=== PATIENT | female | born 1995 | race Caucasian/White ===

== ENCOUNTER 2017-02-07 19:57 | Emergency (ER) | payer MEDICAID ==
[~2017-02-07] VITALS: Ht 160 cm; Wt 75.0 kg
[~2017-02-07 19:57] MED LIST: ACET325T33 PO; FLUO40CA10 PO; ONDA4TAB35 PO
[2017-02-07 20:13] VITALS: Ht 160 cm; Wt 75.0 kg
[2017-02-07] MEDS ORDERED: ONDANSETRON (ODT) 4 MG TAB ODT STA (21:33)
[2017-02-07 21:54] LABS: URINE BLOOD (Dip) POC Negative (NEGATIVE)
[2017-02-07] MEDS ORDERED: MECLIZINE 12.5 MG TAB PO ONE (22:00)
[2017-02-07] MEDS ORDERED: ONDA4TAB14 PO (22:15)
[2017-02-07] MEDS ORDERED: MECL12.574 PO (22:15)
--- NOTE | 2017-02-07 22:18 | ERD ---
ER Documentation Chief Complaint Date/Time DATE: 02/07/17 TIME: 22:16 Chief Complaint dizziness x 4 days HPI Patient is a 21-year-old female who states she has felt dizzy for the past 4 days. She has had this before but usually her symptoms resolve after a couple days. Dizziness is worse with movement and she states that it feels like the room is spinning. She admits to nausea and she vomited one time yesterday. Last menstrual period was 2 weeks ago. Denies any trauma. Denies fever. Worse with movement of her head. ROS All systems reviewed and are negative except as per history of present illness. Medications Home Meds Active Scripts Ondansetron (Ondansetron Odt) 4 Mg Tab.rapdis, 4 MG PO Q6H Y for NAUSEA AND/OR VOMITING, #10 TAB Prov:BRII AVINA PA-C 02/07/17 Meclizine Hcl* (Antivert*) 12.5 Mg Tab, 25 MG PO Q6H Y for DIZZINESS, #20 TAB Prov:BRII AVINA PA-C 02/07/17 Acetaminophen* (Tylenol*) 325 Mg Tablet, 1 TAB PO Q6 Y for PAIN AND OR ELEVATED TEMP, #20 TAB Prov:JOSHUA CASTANEDA PA-C 06/17/15 Ondansetron Hcl* (Zofran* ODT) 4 mg -ODT Tab.disper, 4 MG PO Q6 Y for NAUSEA AND /OR VOMITING, #10 TAB Prov:JOSHUA CASTANEDA PA-C 06/17/15 Reported Medications Fluoxetine Hcl* (Prozac*) 40 Mg Capsule, 40 MG PO DAILY 07/08/12 [None] No Conflict Check 03/26/11 Allergies Allergies: Coded Allergies: No Known Drug Allergies (Verified Allergy, Mild, 03/26/11) PMhx/Soc History of Surgery: No Anesthesia Reaction: No Hx Neurological Disorder: No Hx Respiratory Disorders: No Hx Cardiac Disorders: No Hx Psychiatric Problems: Yes (DEPRESSION.) Hx Miscellaneous Medical Probl: Yes (insomnia) Hx Alcohol Use: Yes (social) Hx Substance Use: No Hx Tobacco Use: Yes Smoking Status: Current some day smoker FmHx Family History: No diabetes Physical Exam Vitals Vital Signs Date Time Temp Pulse Resp B/P Pulse Ox O2 Delivery O2 Flow Rate FiO2 02/07/17 20:13 98.4 86 17 127/62 99 Physical Exam General: well developed, well nourished, alert, nontoxic, no distress Head: normocephalic, atraumatic Eyes: PERRL, normal conjunctiva Neck: Supple, nontender, no lymphadenopathy, no midline tenderness Ears: no tenderness over mastoids bilaterally, TMs nonerythematous, no exudates in canal Oropharynx: no tonsilar erythema or edema, uvula midline, no exudates, no kissing tonsils, no drooling Respiratory: Clear to auscaultation bilaterally, speaks in full sentences, no use of accesory muscles or labored breathing, no rales, ronchi, or wheezing Cardiovascular: RRR, No murmurs GI: soft, non tender, non distended, negative murphys sign, negative mcburneys point tenderness, no cva tenderness bilaterally, no rebound or guarding Back: no midline tenderness, no step offs or bony abnormalities, sensation to light touch in tact Neuro: CN 2-12 intact, normal speech, asian art curator strength 5/5 bilaterally, rapid alternating movements wnl, romberg and pronator drift wnl Results 24 hrs Laboratory Tests Test 02/07/17 21:54 02/07/17 21:59 Bedside Urine pH (LAB) 8.5 Bedside Urine Protein (LAB) Negative Bedside Urine Glucose (UA) Negative Bedside Urine Ketones (LAB) Negative Bedside Urine Blood Negative Bedside Urine Nitrite (LAB) Negative Bedside Urine Leukocyte Esterase (L Negative Bedside Glucose 100mg/dL Current Medications Medications (Trade) Dose Ordered Sig/Toney Route PRN Reason Start Time Stop Time Status Last Admin Dose Admin Meclizine HCl (Antivert) 25 mg ONCE ONCE PO 02/07/17 22:00 02/07/17 22:01 DC 02/07/17 21:52 Ondansetron HCl (Zofran Odt) 4 mg ONCE STAT ODT 02/07/17 21:33 02/07/17 21:35 DC 02/07/17 21:52 Procedures/MDM 21-year-old female presents with dizziness. She is well-appearing and neurovascularly intact. Urine is negative for infection or . Accu- Chek was normal. EKG was normal with a rate of [address] with no evidence of ST elevation or acute ischemic changes. This is most likely vertigo. She was given meclizine and Zofran here in the emergency room and discharged with prescriptions for both also. Recommended this patient follow up with her primary care doctor within 48 hours or return to the emergency room for any worsening of symptoms. However this time I do believe there is suitable for outpatient management. I answered all their questions and they agreed with the plan and were discharged home. Departure Diagnosis: Primary Impression: Dizziness Condition: Stable Patient Instructions: Dizziness, Unk Cause Additional Instructions: Call your primary care doctor TOMORROW for an appointment during the next 1-2 days.See the doctor sooner or return here if your condition worsens before your appointment time. BRII AVINA PA-C Feb 07, 2017 22:18
== END 2017-02-07 22:22 | disposition home or self-care (01) ==
LOC: FTE 19:57
DX: R42 Dizziness and giddiness (principal); F17.210 Nicotine dependence, cigarettes, uncomplicated
CPT/HCPCS: 81003; 82962; 93005; Z7610; 99283